=== PATIENT | female | born 1990 ===

== ENCOUNTER 2016-06-25 17:38 | Emergency (ER) | payer BC ==
[2016-06-25 18:36] VITALS: BP 117/75
--- NOTE | 2016-06-25 18:45 | UC ---
Abdominal Pain Female HPI - HPI Summary HPI Summary: The patient comes in today for: 1. Abdominal pain, diarrhea: Onset: Yesterday. Palliative/provocative: Nothing makes her abdominal pain/diarrhea better or worse. Quality: Cramping, sharp episodes. AT this time a dull aching feeling. Region/radiation: Upper, abdomen--epigasteric. Severity: 0/10 Time: Comes and goes. Associated symptoms: Diarrhea: 3 stools 06/24/16, 7 stools today. She states that her last stools had "evidence of blood." She states that her last, "more solid" stool, looked like "tissue" in the stool. She states that she was dripping red-brown material. Previous intestinal problems: None--no PUD or ulcers or pancreatitis Traveling: None. Vomiting: None, no nausea, but no appetite. Dysuria: Present History of genital herpes: She states that her perineum has had some swelling and soreness. She started Valtrex but she has not had improvement. The area was itching. * - History of Current Complaint Chief Complaint: UCGI Stated Complaint: ABDOMINAL COMPLAINT Time Seen by Provider: 06/25/16 18:38 Hx Obtained From: Patient Hx Last Menstrual Period: 7 weeks ago. Allergies/Adverse Reactions: Allergies Allergy/AdvReac Type Severity Reaction Status Date / Time No Known Allergies Allergy Verified 06/25/16 18:28 Home Medications: Home Medications Cetirizine* [ZyrTEC*] 06/25/16 [History] Fluticasone-Salmeterol 100-50* [Advair Diskus 100-50*] 06/25/16 [History] Montelukast Sodium TAB* [Singulair 10 MG TAB*] 06/25/16 [History Confirmed 09/06] NK [No Home Medications Reported] 06/25/16 [History Confirmed 06/25/16] Oral Control 06/25/16 [History] PMH/Surg Hx/FS Hx/Imm Hx Previously Healthy: No - Eczema, genital herpes Endocrine History Of: Denies: Diabetes, Thyroid Disease, Hyperthyroidism, Hypothyroidism, Dyslipidemia Cardiovascular History Of: Denies: Cardiac Disorders, Hypertension, Pacemaker/ICD, Myocardial Infarction , Congestive Heart Failure, Atrial Fibrillation, Deep Vein Thrombosis, Bleeding Disorders Respiratory History Of: Denies: COPD, Asthma, Bronchitis, Pneumonia, Pulmonary Embolism GI/ History Of: Denies: Gastroesophageal Reflux, Ulcer, Gastrointestinal Bleed, Gall Bladder Disease, Kidney Stones, Diverticulitis, Renal Disease, Urosepsis Neurological History Of: Denies: TIA, CVA, Dementia, Seizures, Migraine Psychological History Of: Denies: Anxiety, Depression, Bipolar Disorder, Schizophrenia, Post Traumatic Stress Disorder Cancer History Of: Denies: Lung Cancer, Colorectal Cancer, Breast Cancer, Prostate Cancer, Cervical Cancer Other History Of: Negative For: HIV, Hepatitis B, Hepatitis C, Anticoagulant Therapy - Surgical History Surgical History: None - Family History Known Family History: Negative: Cardiac Disease, Hypertension - Social History Occupation: Employed Full-time Alcohol Use: None Substance Use Type: None Smoking Status (MU): Never Smoked Tobacco Review of Systems Constitutional: Negative Skin: Negative Eyes: Negative ENT: Negative Respiratory: Negative Cardiovascular: Negative Gastrointestinal: Abdominal Pain, Diarrhea Genitourinary: Dysuria Motor: Negative All Other Systems Reviewed And Are Negative: Yes Physical Exam Triage Information Reviewed: Yes Appearance: Well-Appearing, No Pain Distress, Well-Nourished Vital Signs: Initial Vital Signs Temp 98.8 F 06/25/16 18:29 Pulse 86 06/25/16 18:29 Resp 16 06/25/16 18:29 BP 117/75 06/25/16 18:29 Pulse Ox 100 06/25/16 18:29 Vital Signs Reviewed: Yes Eyes: Positive: Conjunctiva Clear. Negative: Discharge ENT: Positive: Hearing grossly normal. Negative: Pharyngeal erythema, Nasal congestion, Nasal drainage, TM bulging, TM dull, TM red, Tonsillar swelling, Tonsillar exudate Dental: Negative: Gross Decay/Caries @, Dental Fracture @ Neck: Positive: Supple, Nontender, No Lymphadenopathy. Negative: Nuchal Rigidity Respiratory: Positive: Lungs clear, No respiratory distress, No accessory muscle use. Negative: Crackles, Stridor, Wheezing Cardiovascular: Positive: RRR, No Murmur Abdomen Description: Positive: No Organomegaly, Soft. Negative: Nontender - She had tenderness to palpation of the area between the navel and the epigastric area. No rebound or masses or percussion tenderness., Distended, Guarding Musculoskeletal: Positive: Strength Intact, ROM Intact Neurological: Positive: Alert, Muscle Tone Normal Psychological: Positive: Age Appropriate Behavior, Consolable Skin: Negative: rashes, breakdown UC Physical Exam Vital Signs On Initial Exam: Initial Vitals Temp Pulse Resp BP Pulse Ox 98.8 F 86 16 117/75 100 06/25/16 18:29 06/25/16 18:29 06/25/16 18:29 06/25/16 18:29 06/25/16 18:29 - Rectal Exam Rectal Exam: Other - Exam done by Mitzi Newby [employer]: External: no lesions, no evidence of hemorrhoids or fissures, or masses, no marked discomfort. No blood on the withdrawn finger, but hemoccult positive on testing. Abd Pain Female Course/Dx - Course Course Of Treatment: The patient was told that I did not know for sure what was causing her abdominal pain. The patient was told that there are many causes for abdominal pain--some benign, and some life-threatening. And these life- threatening conditions can be present with minimal, atypical, or even no symptoms. Since we don't have the testing modalities that are commonly used to distinguish between the benign. and life-threatening causes and their timely results, my formal recommendation was for her to go. to the ER for further evaluation. She did not want to do this and wanted to take anti-spasmotic medicationa and get stool studies done outpatient. She was told that we would respect her decision, but if there was any worsening of her condition, she was recommended to go to the ER. She agreed. - Differential Dx/Diagnosis Provider Diagnoses: Abdominal pain. Hematochezia Discharge - Discharge Plan Condition: Stable Disposition: AGAINST MEDICAL ADVICE Referrals: No Primary Care Phys,[facility]OPCP [Primary Care Provider] - [facility] [place] [facility] [Outside] Additional Instructions: If you don't go to the ER as recommended, please reconsider if you get worse. Take the antispasmotic medication as needed and get the stool studies done. Please see your primary care provider in the next day or so. If you don't have one or if you can't get in timely, you can come back to see us.
== END 2016-06-25 20:48 | disposition left against medical advice (07) ==
LOC: UCEAST 17:38
DX: R10.9 Unspecified abdominal pain (principal); K92.1 Melena
CPT/HCPCS: 81002; 81025; 82270; 87086; 99202; G0463